=== PATIENT | female | born 1955 | race Caucasian/White ===

== ENCOUNTER 2024-12-24 07:48 | Outpatient (CLI) | payer OTHER ==
[~2024-12-24 07:48] MED LIST: KETO10TA2 PO; LEVSIN/SL0.125 MG PO; SINGULAIR4 MG; ZESTRIL5 MG
== END 2024-12-24 07:51 | disposition home or self-care (01) ==
LOC: SONOGRAMA 07:48
PROVIDERS: ATTEND Orthopaedic Surgery
DX: M25.511 Pain in right shoulder (principal)